=== PATIENT | male | born 1955 | race Caucasian/White ===

== ENCOUNTER 2022-08-08 15:25 | Outpatient (CLI) | payer MEDICARE ==
[2022-08-08 17:21] LABS: #Eosinphils 0.2 10x3/uL (0.0-0.5); #Monocytes 0.7 10x3/uL (0.0-1.1); #Neutrophils 4.4 10x3/uL (1.5-8.4); %Basophils 0.4 % (0.0-2.0); %Eosinophils 2.1 % (0.0-6.0); %Lymphocytes 35.2 % (18.0-47.0); %Monocytes 8.8 % (0.0-10.0); %Neutrophils 53.1 % (40.0-75.0); Hemoglobin 13.8 g/dL (13.5-17.5); Mean Corpuscular HGB CONC 34.6 g/dL (32.0-36.0); Mean Corpuscular Hemoglobin 34.1 pg (27.0-33.0); Mean Corpuscular Volume 98.5 fl (81.2-95.1); Mean Platelet Volume 9.2 fl (7.4-10.4); Platelet Count 263 10x3/uL (150-450); RBC Distribution Width 11.9 % (11.5-14.5); Red Blood Cell (RBC) Count 4.05 10x6/uL (4.32-5.72); White Blood Cell (WBC) Count 8.3 10x3/uL (3.5-10.5)
[2022-08-08 17:49] LABS: Anion Gap 14 mmol/L (10-20); BUN (Urea Nitrogen) 19 mg/dL (8.4-25.7); Calc. Creatinine Clearance 0 mL/min (70-130); Calcium 9.2 mg/dL (7.8-10.44); Carbon Dioxide 27 mmol/L (23-31); Chloride 107 mmol/L (98-107); Estimated GFR 83; Glucose 83 mg/dL (80-115); Potassium 4.5 mmol/L (3.5-5.1); Sodium 143 mmol/L (136-145)
== END 2022-08-08 15:26 | disposition home or self-care (01) ==
LOC: LABBT 15:25
PROVIDERS: ATTEND Orthopaedic Surgery
DX: Z01.818 Encounter for other preprocedural examination (principal); M17.11 Unilateral primary osteoarthritis, right knee
CPT/HCPCS: 80048; 85025; 87081; 93005; 93010

== ENCOUNTER 2022-08-12 08:49 | Observation (INO) | payer MEDICARE ==
[2022-08-08 16:08] VITALS: BMI 38.0
[2022-08-12] MEDS ORDERED: Sodium Chloride 0.9% 100 ML ONE ×2 (09:02→10:44)
[2022-08-12] MEDS ORDERED: Tranexamic Acid 1,000 MG/10 ML VIAL ONE (09:02)
[2022-08-12] MEDS ORDERED: Vancomycin (BATCH) 1.5 GRAM/300 ML BAG ONE (09:02)
[2022-08-12] MEDS ORDERED: fentaNYL 50 mcg/mL 1 mL Vial ONE ×4 (09:31→14:09)
[2022-08-12] MEDS ORDERED: Midazolam HCl 2 mg/2 ml Vial ONE ×2 (09:31→11:02)
[2022-08-12] MEDS ORDERED: Bupivacaine PF 0.5% 30 ML VIAL ONE (09:31)
[2022-08-12 10:10] LABS: Prothrombin Time 13.6 sec (12.0-14.7)
[2022-08-12] MEDS ORDERED: fentaNYL 50 mcg/mL 1 mL Vial SLOW IVP PRN (10:13)
[2022-08-12] MEDS ORDERED: Ropivacaine 0.2% 550 ML 550 ML NERVE BLCK SCH (10:15)
[2022-08-12] MEDS ORDERED: Ondansetron PF 4 MG/2 ML Vial IVP PRN ×2 (10:15→10:43)
[2022-08-12] MEDS ORDERED: Zolpidem Tartrate 5 MG TAB PO PRN ×2 (10:15→10:43)
[2022-08-12] MEDS ORDERED: Promethazine HCl 25 MG/ML VIAL IM PRN ×2 (10:15→10:43)
[2022-08-12] MEDS ORDERED: HYDROcodone/Acetaminophen 10/325 mg Tablet PO PRN (10:15)
[2022-08-12] MEDS ORDERED: traMADol HCl 50 MG TAB PO PRN (10:15)
[2022-08-12] MEDS ORDERED: Lidocaine 1% PF 5 ML VIAL ONE (10:43)
[2022-08-12] MEDS ORDERED: diphenhydrAMINE 25 MG CAP PO PRN (10:43)
[2022-08-12] MEDS ORDERED: Ondansetron PF 4 MG/2 ML Vial ONE (10:43)
[2022-08-12] MEDS ORDERED: Dexamethasone 20 MG/5 ML VIAL ONE (10:43)
[2022-08-12] MEDS ORDERED: Ketorolac Tromethamine 30 MG/ML VIAL ONE (10:43)
[2022-08-12] MEDS ORDERED: PROPOFOL 200 MG/20 ML VIAL ONE (10:43)
[2022-08-12] MEDS ORDERED: Acetaminophen 325 MG TAB PO PRN (10:43)
[2022-08-12] MEDS ORDERED: CEFAZOLIN 2 GM VIAL ONE (10:44)
[2022-08-12] MEDS: Sodium Chloride 0.9% 1,000 ML IV SCH ×2 (10:45→18:10)
[2022-08-12] MEDS ORDERED: Bupivacaine HCl 0.5%/Epinephrine 1:200,000/PF 30 ml Vial ONE (10:49)
[2022-08-12] MEDS: Ketorolac Tromethamine 30 MG/ML VIAL IVP SCH ×2 (12:00→15:40)
[2022-08-12] MEDS ORDERED: HYDROmorphone 2 MG/ML VIAL ONE (12:02)
[2022-08-12] MEDS ORDERED: Ondansetron HCl/PF 4 MG/2 ML Vial IVP PRN (12:05)
[2022-08-12] MEDS ORDERED: HYDROmorphone 2 MG/ML VIAL SLOW IVP PRN (12:05)
[2022-08-12] MEDS ORDERED: fentaNYL PF 100 MCG/2 ML SYRINGE ONE (13:19)
[2022-08-12] MEDS: traMADol HCl 50 MG TAB PO PRN (16:59)
[2022-08-12] MEDS: CEFAZOLIN 2 GM in Sodium Chloride 0.9% 100 ML IVPB SCH (18:13)
[2022-08-12] MEDS: HYDROcodone/Acetaminophen 10/325 mg Tablet PO PRN (20:23)
[2022-08-12] MEDS: Aspirin 81 mg Enteric Coated Tablet PO SCH (20:23)
[2022-08-13] MEDS: traMADol HCl 50 MG TAB PO PRN ×2 (00:16→06:18)
[2022-08-13] MEDS: Ketorolac Tromethamine 30 MG/ML VIAL IVP SCH ×3 (00:17→11:01)
[2022-08-13] MEDS: CEFAZOLIN 2 GM in Sodium Chloride 0.9% 100 ML IVPB SCH (03:07)
[2022-08-13] MEDS: HYDROcodone/Acetaminophen 10/325 mg Tablet PO PRN ×2 (03:12→08:42)
[2022-08-13 03:16] VITALS: TEMP 98.2
[2022-08-13] MEDS: Sodium Chloride 0.9% 1,000 ML IV SCH (05:53)
[2022-08-13 06:20] LABS: Hemoglobin 11.8 g/dL (14.0-18.0); Mean Corpuscular HGB CONC 33.1 g/dL (32.0-36.0); Mean Corpuscular Hemoglobin 33.8 pg (27.0-31.0); Mean Platelet Volume 8.8 fL (7.4-10.4); Platelet Count 213 10x3/uL (130-400); RBC Distribution Width 12.2 % (11.5-14.5); Red Blood Cell (RBC) Count 3.49 mill/uL (4.70-6.10); White Blood Cell (WBC) Count 10.8 10x3/uL (4.8-10.8)
[2022-08-13 07:36] VITALS: BP 146/87
[2022-08-13] MEDS ORDERED: Ferrous Gluconate 324 MG TAB PO SCH (08:00)
[2022-08-13] MEDS: Aspirin 81 mg Enteric Coated Tablet PO SCH (08:42)
[2022-08-13] MEDS ORDERED: Multivitamin W/ Minerals 1 TAB PO SCH (09:00)
[2022-08-13] MEDS ORDERED: Amlodipine 5 MG TAB PO SCH (09:00)
[2022-08-13] MEDS ORDERED: Senokot S 8.6-50 MG TAB PO SCH (09:00)
[2022-08-13] MEDS ORDERED: Losartan/Hydrochlorothiazide 100 mg/25 mg Tablet PO SCH (09:00)
== END 2022-08-13 11:30 | disposition home or self-care (01) ==
LOC: SDC 08:49 → SURG B 14:55
PROVIDERS: ADMIT Orthopaedic Surgery; ATTEND Orthopaedic Surgery
PROC: 0SRC0J9 Replacement of Right Knee Joint with Synthetic Substitute, Cemented, Open Approach (ICD-10-PCS; principal; 2022-08-12)
DX: M17.0 Bilateral primary osteoarthritis of knee (principal); I10 Essential (primary) hypertension; G62.9 Polyneuropathy, unspecified; F17.210 Nicotine dependence, cigarettes, uncomplicated; E66.9 Obesity, unspecified; Z68.38 Body mass index [BMI] 38.0-38.9, adult; Z79.1 Long term (current) use of non-steroidal anti-inflammatories (NSAID); Z79.899 Other long term (current) drug therapy
CPT/HCPCS: 20985; 27447; 73560; 85027; 85610; 97110 ×2; 97116 ×2; 97530 ×2; A4306; C1713; C1776; J3010; J3370; 36415; 96365; 96375; 96376; G0378; J1100; J1170; J1885; J2250; J2405; J2704; J2795; J3490; J7050; S0020

== ENCOUNTER 2022-11-18 05:35 | Observation (INO) | payer MEDICARE ==
[2022-11-17 10:27] VITALS: BMI 38.2
[2022-11-18] MEDS ORDERED: Sodium Chloride 0.9% 100 ML ONE ×2 (06:09→06:58)
[2022-11-18] MEDS ORDERED: Tranexamic Acid 1,000 MG/10 ML VIAL ONE (06:09)
[2022-11-18] MEDS ORDERED: Vancomycin (BATCH) 1.5 GRAM/300 ML BAG ONE (06:09)
[2022-11-18] MEDS ORDERED: Bupivacaine PF 0.5% 30 ML VIAL ONE ×2 (06:43→06:54)
[2022-11-18] MEDS ORDERED: Midazolam HCl 2 mg/2 ml Vial ONE (06:54)
[2022-11-18] MEDS ORDERED: fentaNYL 50 mcg/mL 1 mL Vial ONE ×5 (06:54→10:33)
[2022-11-18] MEDS ORDERED: CEFAZOLIN 2 GM VIAL ONE (06:58)
[2022-11-18] MEDS ORDERED: Bupivacaine HCl 0.5%/Epinephrine 1:200,000/PF 30 ml Vial ONE (07:10)
[2022-11-18] MEDS ORDERED: Fentanyl 250 MCG/5 ML VIAL ONE (07:16)
[2022-11-18] MEDS ORDERED: Zolpidem Tartrate 5 MG TAB PO PRN ×2 (07:21→07:30)
[2022-11-18] MEDS ORDERED: Ondansetron PF 4 MG/2 ML Vial IVP PRN ×2 (07:21→07:30)
[2022-11-18] MEDS ORDERED: HYDROcodone/Acetaminophen 10/325 mg Tablet PO PRN ×3 (07:21→07:30)
[2022-11-18] MEDS ORDERED: Promethazine HCl 25 MG/ML VIAL IM PRN ×2 (07:21→07:30)
[2022-11-18] MEDS ORDERED: diphenhydrAMINE 25 MG CAP PO PRN (07:21)
[2022-11-18] MEDS ORDERED: fentaNYL 50 mcg/mL 1 mL Vial SLOW IVP PRN ×3 (07:21→07:29)
[2022-11-18] MEDS ORDERED: Acetaminophen 325 MG TAB PO PRN (07:21)
[2022-11-18 07:24] LABS: #Eosinphils 0.1 thou/uL (0.0-0.7); #Monocytes 0.6 thou/uL (0.11-0.59); #Neutrophils 2.7 thou/uL (1.40-6.50); %Basophils 0.5 % (0.0-1.0); %Eosinophils 1.6 % (0.0-10.0); %Lymphocytes 37.2 % (21.0-51.0); %Monocytes 11.4 % (0.0-10.0); %Neutrophils 48.9 % (42.0-75.0); Hematocrit 40.9 % (42.0-52.0); Mean Corpuscular HGB CONC 34.2 g/dL (32.0-36.0); Mean Corpuscular Hemoglobin 33.7 pg (27.0-31.0); Mean Corpuscular Volume 98.6 fl (78.0-98.0); Mean Platelet Volume 8.6 fL (7.4-10.4); Platelet Count 218 10x3/uL (130-400); RBC Distribution Width 12.2 % (11.5-14.5); Red Blood Cell (RBC) Count 4.15 mill/uL (4.70-6.10); White Blood Cell (WBC) Count 5.5 10x3/uL (4.8-10.8)
[2022-11-18] MEDS ORDERED: Dexamethasone 20 MG/5 ML VIAL ONE (07:26)
[2022-11-18] MEDS ORDERED: Lidocaine 1% PF 5 ML VIAL ONE (07:26)
[2022-11-18] MEDS ORDERED: PROPOFOL 200 MG/20 ML VIAL ONE (07:26)
[2022-11-18] MEDS ORDERED: Ondansetron PF 4 MG/2 ML Vial ONE (07:26)
[2022-11-18] MEDS ORDERED: Ketorolac Tromethamine 30 MG/ML VIAL ONE (07:26)
[2022-11-18] MEDS ORDERED: Ropivacaine 0.2% 550 ML 550 ML NERVE BLCK SCH (07:30)
[2022-11-18] MEDS ORDERED: traMADol HCl 50 MG TAB PO PRN (07:30)
[2022-11-18 07:43] LABS: Anion Gap 12 mmol/L (10-20); BUN (Urea Nitrogen) 18 mg/dL (8.4-25.7); Calc. Creatinine Clearance 173 mL/min (70-130); Calcium 9.6 mg/dL (7.8-10.44); Carbon Dioxide 25 mmol/L (23-31); Chloride 105 mmol/L (98-107); Estimated GFR 102; Glucose 135 mg/dL (80-115); Potassium 4.2 mmol/L (3.5-5.1); Sodium 138 mmol/L (136-145)
[2022-11-18] MEDS ORDERED: Non-Formulary Item 1 EACH (Mv-Min/Folic/K1/Lycopen/Lutein [Centrum Silver Men Tablet] 1 E PO SCH (09:00)
[2022-11-18] MEDS ORDERED: HYDROmorphone 0.5 MG/0.5 ML SYRINGE ONE ×4 (09:33→10:03)
[2022-11-18] MEDS ORDERED: Non-Formulary Medication 1 EACH PO PRN (09:46)
[2022-11-18] MEDS ORDERED: Ondansetron HCl/PF 4 MG/2 ML Vial IVP PRN (10:00)
[2022-11-18] MEDS ORDERED: Promethazine HCl 25 MG/ML VIAL IM/IV PRN (10:00)
[2022-11-18] MEDS ORDERED: HYDROmorphone 2 MG/ML VIAL SLOW IVP PRN (10:00)
[2022-11-18] MEDS: Multivitamin W/ Minerals 1 TAB PO SCH (11:32)
[2022-11-18] MEDS: Meloxicam 15 MG TAB PO SCH (11:32)
[2022-11-18] MEDS: Senokot S 8.6-50 MG TAB PO SCH ×2 (11:32→21:25)
[2022-11-18] MEDS: Ferrous Gluconate 324 MG TAB PO SCH ×2 (11:33→21:25)
[2022-11-18] MEDS: Losartan/Hydrochlorothiazide 100 mg/25 mg Tablet PO SCH (11:33)
[2022-11-18] MEDS: Aspirin 81 mg Enteric Coated Tablet PO SCH ×2 (11:33→21:25)
[2022-11-18] MEDS: Amlodipine 5 MG TAB PO SCH (11:33)
[2022-11-18] MEDS: Ketorolac Tromethamine 30 MG/ML VIAL IVP SCH ×2 (11:48→17:53)
[2022-11-18] MEDS: Sodium Chloride 0.9% 1,000 ML IV SCH ×2 (11:48→23:16)
[2022-11-18] MEDS ORDERED: Ketorolac Tromethamine 30 MG/ML VIAL IVP SCH (14:00)
[2022-11-18] MEDS: HYDROcodone/Acetaminophen 10/325 mg Tablet PO PRN ×2 (14:24→19:17)
[2022-11-18] MEDS: CEFAZOLIN 2 GM in Sodium Chloride 0.9% 100 ML IVPB SCH (14:25)
[2022-11-18] MEDS: traMADol HCl 50 MG TAB PO PRN (21:30)
[2022-11-19] MEDS: Ketorolac Tromethamine 30 MG/ML VIAL IVP SCH ×2 (00:40→05:07)
[2022-11-19] MEDS: CEFAZOLIN 2 GM in Sodium Chloride 0.9% 100 ML IVPB SCH (00:40)
[2022-11-19] MEDS: HYDROcodone/Acetaminophen 10/325 mg Tablet PO PRN ×2 (00:42→09:01)
[2022-11-19] MEDS: traMADol HCl 50 MG TAB PO PRN (05:07)
[2022-11-19 07:03] LABS: Hematocrit 32.3 % (42.0-52.0); Hemoglobin 11.1 g/dL (14.0-18.0); Mean Corpuscular HGB CONC 34.4 g/dL (32.0-36.0); Mean Corpuscular Hemoglobin 34.2 pg (27.0-31.0); Mean Corpuscular Volume 99.4 fl (78.0-98.0); Mean Platelet Volume 8.8 fL (7.4-10.4); Platelet Count 188 10x3/uL (130-400); RBC Distribution Width 12.2 % (11.5-14.5); Red Blood Cell (RBC) Count 3.25 mill/uL (4.70-6.10); White Blood Cell (WBC) Count 8.8 10x3/uL (4.8-10.8)
[2022-11-19 08:48] VITALS: BP 156/98; TEMP 98
[2022-11-19] MEDS: Sodium Chloride 0.9% 1,000 ML IV SCH (08:51)
[2022-11-19] MEDS: Senokot S 8.6-50 MG TAB PO SCH (08:53)
[2022-11-19] MEDS: Amlodipine 5 MG TAB PO SCH (08:53)
[2022-11-19] MEDS: Multivitamin W/ Minerals 1 TAB PO SCH (08:53)
[2022-11-19] MEDS: Aspirin 81 mg Enteric Coated Tablet PO SCH (08:54)
[2022-11-19] MEDS: Ferrous Gluconate 324 MG TAB PO SCH (08:54)
[2022-11-19] MEDS: Losartan/Hydrochlorothiazide 100 mg/25 mg Tablet PO SCH (08:54)
[2022-11-19] MEDS: Meloxicam 15 MG TAB PO SCH (10:33)
[2022-11-20] MEDS ORDERED: Fluticasone Propionate Nasal Spray 16 gm Bottle NASAL SCH (09:00)
== END 2022-11-19 11:46 | disposition home or self-care (01) ==
LOC: SDC 05:35 → SURG B 07:22
PROVIDERS: ADMIT Orthopaedic Surgery; ATTEND Orthopaedic Surgery
PROC: 0SRD0JZ Replacement of Left Knee Joint with Synthetic Substitute, Open Approach (ICD-10-PCS; principal; 2022-11-18)
DX: M17.11 Unilateral primary osteoarthritis, right knee (principal); M17.12 Unilateral primary osteoarthritis, left knee; I10 Essential (primary) hypertension; G47.00 Insomnia, unspecified; G62.9 Polyneuropathy, unspecified; Z96.651 Presence of right artificial knee joint; Z87.891 Personal history of nicotine dependence; Z79.899 Other long term (current) drug therapy
CPT/HCPCS: 27447; 73560; 80048; 85025; 85027; 96365; 96375; 96376 ×2; 97110 ×2; 97116 ×2; 97530; A4306; C1776; G0378 ×2; J3010; J3370; 36415; J1100; J1170; J1885; J2250; J2405; J2704; J2795; J3490; J7050; S0020